=== PATIENT | female | born 1945 | race American Indian/Alaskan Native ===

== ENCOUNTER 2021-01-29 10:51 | Inpatient (IN) | payer MEDICARE ==
[2021-01-29] MEDS ORDERED: SODIUM CHLORIDE 0.9% 500 ML 500 ML IV ONE (11:16)
--- NOTE | 2021-01-29 11:18 | Emergency Department Report ---
Blank Doc - Documentation Documentation: 75-year-old brought by caregiver for AMS and hematuria. 1- This initial assessment/diagnostic orders/clinical plan/ treatment(s) is/are subject to change based on pt's health status, clinical progression and re- assessment by fellow clinical providers in the ED. Further treatment and workup at subsequent clinical provers discretion. Patient/guardians urged not to elope from ED as their condition may be serious if not clinically assessed and managed. 2-labs 3-imaging studies
--- NOTE | 2021-01-29 11:54 | XRay Report ---
CHEST 1 VIEW INDICATION: possible Sepsis. COMPARISON: None FINDINGS: Support devices: None. Heart: Within normal limits. Lungs/Pleura: No acute air space or interstitial disease. Additional findings: None. IMPRESSION: No acute findings. Signer Name: Domingo Guerra Jr, MD Signed: 01/29/2021 11:49 AM Workstation Name: [id number]
--- NOTE | 2021-01-29 11:58 | Emergency Department Report ---
ED General Adult HPI - General Chief complaint: Urogenital-Female Stated complaint: BLOOD IN URINE/HIP PAIN/SHOULDER Time Seen by Provider: 01/29/21 11:07 Source: family Mode of arrival: Wheelchair Limitations: Altered Mental Status - History of Present Illness Initial comments: Patient is a 75-year-old female who was brought to the emergency department by her top lift trimmer for evaluation of altered mental status and hematuria over an unspecified amount of time. Machines Technician not available in person nor via telephone at present time, patient alert but seemingly demented, unable to significantly contribute to history. - Related Data Home Medications Medication Instructions Recorded Confirmed Last Taken Sertraline [Zoloft] 50 mg PO DAILY 01/29/21 01/29/21 Unknown Allergies Allergy/AdvReac Type Severity Reaction Status Date / Time No Known Allergies Allergy Unverified 01/29/21 11:06 ED Review of Systems ROS: Stated complaint: BLOOD IN URINE/HIP PAIN/SHOULDER Other details as noted in HPI Comment: Unobtainable due to pts medical conditions ED Past Medical Hx - Past Medical History Previous Medical History?: Yes Hx Diabetes: Yes Additional medical history: Hx ovarian CA - Medications Home Medications: Home Medications Medication Instructions Recorded Confirmed Last Taken Type Sertraline [Zoloft] 50 mg PO DAILY 01/29/21 01/29/21 Unknown History ED Physical Exam - General Limitations: Altered Mental Status General appearance: alert, in no apparent distress - Head Head exam: Present: atraumatic, normocephalic - Eye Eye exam: Present: normal appearance - ENT ENT exam: Present: mucous membranes moist - Neck Neck exam: Present: normal inspection - Respiratory Respiratory exam: Present: normal lung sounds bilaterally. Absent: respiratory distress - Cardiovascular Cardiovascular Exam: Present: regular rate, normal rhythm - GI/Abdominal GI/Abdominal exam: Present: soft, normal bowel sounds - Extremities Exam Extremities exam: Present: normal inspection - Back Exam Back exam: Present: normal inspection - Neurological Exam Neurological exam: Present: alert, oriented X3 - Psychiatric Psychiatric exam: Present: normal affect, normal mood - Skin Skin exam: Present: warm, dry, intact, normal color. Absent: rash ED Course Vital Signs 01/29/21 01/29/21 01/29/21 11:10 12:06 12:38 Temperature 97.3 F L Pulse Rate 109 H 87 Respiratory 16 18 18 Rate Blood Pressure 137/94 166/79 [Right] O2 Sat by Pulse 97 96 Oximetry 01/29/21 14:35 Temperature Pulse Rate 75 Respiratory 18 Rate Blood Pressure 175/84 [Right] O2 Sat by Pulse 98 Oximetry - Reevaluation(s) Reevaluation #1: 01/29/21 16:14 Patient treated with IV normal saline, IV Rocephin ED Medical Decision Making - Lab Data Result diagrams: 01/29/21 12:07 01/29/21 12:07 Vital Signs 01/29/21 01/29/21 01/29/21 11:10 12:06 12:38 Temperature 97.3 F L Pulse Rate 109 H 87 Respiratory 16 18 18 Rate Blood Pressure 137/94 166/79 [Right] O2 Sat by Pulse 97 96 Oximetry 01/29/21 14:35 Temperature Pulse Rate 75 Respiratory 18 Rate Blood Pressure 175/84 [Right] O2 Sat by Pulse 98 Oximetry Lab Results 01/29/21 01/29/21 01/29/21 Range/Units 11:04 12:07 12:07 WBC 4.1 L (4.5-11.0) K/mm3 RBC 4.49 (3.65-5.03) M/mm3 Hgb 13.7 (10.1-14.3) gm/dl Hct 40.0 (30.3-42.9) % MCV 89 (79-97) fl MCH 30 (28-32) pg MCHC 34 (30-34) % RDW 16.5 H (13.2-15.2) % Plt Count 443 H (140-440) K/mm3 Lymph % (Auto) 20.5 (13.4-35.0) % Rush % (Auto) 6.6 (0.0-7.3) % Eos % (Auto) 0.1 (0.0-4.3) % Baso % (Auto) 0.4 (0.0-1.8) % Lymph # (Auto) 0.8 L (1.2-5.4) K/mm3 Rush # (Auto) 0.3 (0.0-0.8) K/mm3 Eos # (Auto) 0.0 (0.0-0.4) K/mm3 Baso # (Auto) 0.0 (0.0-0.1) K/mm3 Seg Neutrophils % 72.4 H (40.0-70.0) % Seg Neutrophils # 3.0 (1.8-7.7) K/mm3 PT 13.1 (12.2-14.9) Sec. INR 1.01 (0.87-1.13) VBG pH (7.320-7.420) Sodium (137-145) mmol/L Potassium (3.6-5.0) mmol/L Chloride (98-107) mmol/L Carbon Dioxide (22-30) mmol/L Anion Gap mmol/L BUN (7-17) mg/dL Creatinine (0.6-1.2) mg/dL Estimated GFR ml/min BUN/Creatinine Ratio % Glucose (65-100) mg/dL POC Glucose 60 L (70-105) mg/dL Lactic Acid (0.7-2.0) mmol/L Calcium (8.4-10.2) mg/dL Total Bilirubin (0.1-1.2) mg/dL AST (5-40) units/L ALT (7-56) units/L Alkaline Phosphatase (35-129) units/L Total Protein (6.3-8.2) g/dL Albumin (3.9-5) g/dL Albumin/Globulin Ratio % Urine Color (Yellow) Urine Turbidity (Clear) Urine pH (5.0-7.0) Ur Specific [place] (1.003-1.030) Urine Protein (Negative) mg/dL Urine Glucose (UA) (Negative) mg/dL Urine Ketones (Negative) mg/dL Urine Blood (Negative) Urine Nitrite (Negative) Urine Bilirubin (Negative) Urine Urobilinogen (<2.0) mg/dL Ur Leukocyte Esterase (Negative) Urine WBC (Auto) (0.0-6.0) /HPF Urine RBC (Auto) (0.0-6.0) /HPF Amorphous Crystals 01/29/21 01/29/21 01/29/21 Range/Units 12:07 12:07 12:07 WBC (4.5-11.0) K/mm3 RBC (3.65-5.03) M/mm3 Hgb (10.1-14.3) gm/dl Hct (30.3-42.9) % MCV (79-97) fl MCH (28-32) pg MCHC (30-34) % RDW (13.2-15.2) % Plt Count (140-440) K/mm3 Lymph % (Auto) (13.4-35.0) % Rush % (Auto) (0.0-7.3) % Eos % (Auto) (0.0-4.3) % Baso % (Auto) (0.0-1.8) % Lymph # (Auto) (1.2-5.4) K/mm3 Rush # (Auto) (0.0-0.8) K/mm3 Eos # (Auto) (0.0-0.4) K/mm3 Baso # (Auto) (0.0-0.1) K/mm3 Seg Neutrophils % (40.0-70.0) % Seg Neutrophils # (1.8-7.7) K/mm3 PT (12.2-14.9) Sec. INR (0.87-1.13) VBG pH 7.408 (7.320-7.420) Sodium 142 (137-145) mmol/L Potassium 3.9 (3.6-5.0) mmol/L Chloride 104.7 (98-107) mmol/L Carbon Dioxide 24 (22-30) mmol/L Anion Gap 17 mmol/L BUN 20 H (7-17) mg/dL Creatinine 0.6 (0.6-1.2) mg/dL Estimated GFR > 60 ml/min BUN/Creatinine Ratio 33 % Glucose 118 H (65-100) mg/dL POC Glucose (70-105) mg/dL Lactic Acid 1.90 (0.7-2.0) mmol/L Calcium 9.8 (8.4-10.2) mg/dL Total Bilirubin 0.80 (0.1-1.2) mg/dL AST 94 H (5-40) units/L ALT 80 H (7-56) units/L Alkaline Phosphatase 112 (35-129) units/L Total Protein 6.9 (6.3-8.2) g/dL Albumin 3.7 L (3.9-5) g/dL Albumin/Globulin Ratio 1.2 % Urine Color (Yellow) Urine Turbidity (Clear) Urine pH (5.0-7.0) Ur Specific [place] (1.003-1.030) Urine Protein (Negative) mg/dL Urine Glucose (UA) (Negative) mg/dL Urine Ketones (Negative) mg/dL Urine Blood (Negative) Urine Nitrite (Negative) Urine Bilirubin (Negative) Urine Urobilinogen (<2.0) mg/dL Ur Leukocyte Esterase (Negative) Urine WBC (Auto) (0.0-6.0) /HPF Urine RBC (Auto) (0.0-6.0) /HPF Amorphous Crystals 01/29/21 Range/Units 12:20 WBC (4.5-11.0) K/mm3 RBC (3.65-5.03) M/mm3 Hgb (10.1-14.3) gm/dl Hct (30.3-42.9) % MCV (79-97) fl MCH (28-32) pg MCHC (30-34) % RDW (13.2-15.2) % Plt Count (140-440) K/mm3 Lymph % (Auto) (13.4-35.0) % Rush % (Auto) (0.0-7.3) % Eos % (Auto) (0.0-4.3) % Baso % (Auto) (0.0-1.8) % Lymph # (Auto) (1.2-5.4) K/mm3 Rush # (Auto) (0.0-0.8) K/mm3 Eos # (Auto) (0.0-0.4) K/mm3 Baso # (Auto) (0.0-0.1) K/mm3 Seg Neutrophils % (40.0-70.0) % Seg Neutrophils # (1.8-7.7) K/mm3 PT (12.2-14.9) Sec. INR (0.87-1.13) VBG pH (7.320-7.420) Sodium (137-145) mmol/L Potassium (3.6-5.0) mmol/L Chloride (98-107) mmol/L Carbon Dioxide (22-30) mmol/L Anion Gap mmol/L BUN (7-17) mg/dL Creatinine (0.6-1.2) mg/dL Estimated GFR ml/min BUN/Creatinine Ratio % Glucose (65-100) mg/dL POC Glucose (70-105) mg/dL Lactic Acid (0.7-2.0) mmol/L Calcium (8.4-10.2) mg/dL Total Bilirubin (0.1-1.2) mg/dL AST (5-40) units/L ALT (7-56) units/L Alkaline Phosphatase (35-129) units/L Total Protein (6.3-8.2) g/dL Albumin (3.9-5) g/dL Albumin/Globulin Ratio % Urine Color Arlene (Yellow) Urine Turbidity Cloudy (Clear) Urine pH 7.0 (5.0-7.0) Ur Specific [place] 1.019 (1.003-1.030) Urine Protein 100 mg/dl (Negative) mg/dL Urine Glucose (UA) Neg (Negative) mg/dL Urine Ketones Tr (Negative) mg/dL Urine Blood Neg (Negative) Urine Nitrite Pos (Negative) Urine Bilirubin Neg (Negative) Urine Urobilinogen 4.0 (<2.0) mg/dL Ur Leukocyte Esterase Lg (Negative) Urine WBC (Auto) < 1.0 (0.0-6.0) /HPF Urine RBC (Auto) < 1.0 (0.0-6.0) /HPF Amorphous Crystals 3+ - Radiology Data Radiology results: report reviewed Reports reviewed for CT head, CT abdomen pelvis, and chest x-ray, please review radiology report for full results Critical care attestation.: If time is entered above; I have spent that time in minutes in the direct care of this critically ill patient, excluding procedure time. ED Disposition Clinical Impression: Acute cystitis, Urinary (tract) obstruction Disposition: OP ADMIT IP TO THIS HOSP Is pt being admited?: Yes Condition: Stable
--- NOTE | 2021-01-29 12:05 | Cat Scan Report ---
CT head/brain wo con INDICATION / CLINICAL INFORMATION: 75 years Female; AMS. TECHNIQUE: Routine CT head without contrast. All CT scans at this location are performed using CT dos e reduction for ALARA by means of automated exposure control. COMPARISON: None. FINDINGS: BRAIN / INTRACRANIAL CONTENTS: There is moderate to cerebral and cerebellar atrophy with associated p rominence of the ventricular system. There also appears be moderate cerebral white matter disease mos t consistent with microvascular angiopathy. There is no clear CT evidence of acute intracranial hemor rhage or significant mass effect. ORBITS: No significant abnormality of visualized orbits. SINUSES / MASTOIDS: There is mild opacification along the posterior left sphenoid sinus. CRANIOCERVICAL JUNCTION: No significant abnormality. ADDITIONAL FINDINGS: None. IMPRESSION: 1. There is moderate microvascular angiopathy and cerebral atrophy without CT evidence of acute intra cranial hemorrhage. Signer Name: Hao Catalan MD Signed: 01/29/2021 12:01 PM Workstation Name: [id number]
[2021-01-29 12:27] LABS: Basophils % (Auto) 0.4 % (0.0-1.8); Eosinophils % (Auto) 0.1 % (0.0-4.3); Hemoglobin 13.7 gm/dl (10.1-14.3); Lymphocytes # (Auto) 0.8 K/mm3 (1.2-5.4); Lymphocytes % (Auto) 20.5 % (13.4-35.0); Mean Corpuscular HGB Conc 34 % (30-34); Mean Corpuscular Volume 89 fl (79-97); Monocytes # (Auto) 0.3 K/mm3 (0.0-0.8); Monocytes % (Auto) 6.6 % (0.0-7.3); Platelet Count 443 K/mm3 (140-440); Red Blood Count 4.49 M/mm3 (3.65-5.03); Red Cell Distribution Width 16.5 % (13.2-15.2)
[2021-01-29 12:35] LABS: INR 1.01 (0.87-1.13)
[2021-01-29] MEDS ORDERED: SODIUM CHLORIDE 0.9% 500 ML 500 ML ONE (12:35)
[2021-01-29 12:55] LABS: Alanine Aminotransferase 80 units/L (7-56); Albumin 3.7 g/dL (3.9-5); Blood Urea Nitrogen 20 mg/dL (7-17); Calcium 9.8 mg/dL (8.4-10.2); Hemolysis Index 4
[2021-01-29 12:57] LABS: BUN/Creatinine Ratio 33
[2021-01-29 13:42] LABS: Amorphous Crystals,Urine 3+; Bilirubin,Urine NEG (Negative); Blood,Urine NEG (Negative); Color,Urine Amber (Yellow)
[2021-01-29 14:01] LABS: RBC,Urine < 1.0 /HPF (0.0-6.0); WBC,Urine < 1.0 /HPF (0.0-6.0)
[2021-01-29] MEDS ORDERED: cefTRIAXone/NS 1 GM/50 ML 1 GM/50 ML BAG IV ONE (14:12)
--- NOTE | 2021-01-29 14:20 | Cat Scan Report ---
CT abdomen pelvis wo con INDICATION: hematuria. COMPARISON: None TECHNIQUE: Abdominal and pelvic CT exam performed. All CT scans at this location are performed using CT dose reduction for ALARA by means of automated exposure control. FINDINGS: CT ABDOMEN and PELVIS: Please note image quality is significantly degraded by artifact. Lung Bases: 7 mm posterior basal segment right lower lobe pulmonary nodule. There are scattered groun dglass opacities seen within the bilateral lower lobes Liver: No significant abnormality. Biliary: No significant abnormality. Spleen: No significant abnormality. Pancreas: No significant abnormality. Adrenals: No significant abnormality. Kidneys: There is severe left renal pelvis and calyceal dilation. No definite dilation of the ureter. Numerous bilateral dependently layering stones are seen. There is also right hydronephrosis with num erous dependently layering stones. However, this is not well-visualized on this examination secondary to artifact. Lymphatics: No lymphadenopathy. Vasculature: Atherosclerotic but nonaneurysmal abdominal aorta. Ectasia the aorta but no aneurysm. Bowel: Large quantity of stool is seen within the rectum. No pneumoperitoneum. No wall thickening. Pelvis: Bladder is distended but not well evaluated on this exam. Postoperative changes but no signif icant abnormality. Osseous Structures: Remote left parasymphyseal pubic rami fractures. Right greater than left osteoart hritis of the hips. Sclerosis of the bilateral femoral heads. Prior left femoral intramedullary nail ing. Multilevel spondylosis. Chronic appearing multilevel vertebral body height loss. Additional Findings: None IMPRESSION: 1. Please note image quality is significantly degraded. However, there is severe left hydronephrosis with blunting of the calyces and numerous layering stones. The ureters are not dilated and findings c ould be related to a ureteropelvic junction obstruction. There is also right-sided hydronephrosis whi ch is difficult to grade but is at least moderate with numerous layering stones. Consider CT urogram if patient can tolerate contrast. 2. Large quantity of stool in the rectum concerning for fecal impaction. 3. Right lower lobe pulmonary nodule measuring 7 mm. Consider dedicated chest CT follow-up in 6 month s. 4. Right greater than left hip osteoarthritis. 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 Signer Name: Tayo Dillard MD Signed: 01/29/2021 2:16 PM Workstation Name: [id number]
[2021-01-29] MEDS ORDERED: ONDANSETRON 4 MG/2 ML INJ IV PRN (14:35)
[2021-01-29] MEDS ORDERED: ACETAMINOPHEN 325 MG TAB PO PRN (14:35)
--- NOTE | 2021-01-29 14:37 | History and Physical Report ---
History of Present Illness Chief complaint: She is weak, and cannot get out of bed History of present illness: 75 YO Female with Vascular Dementia, Cerebral Atherosclerosis, Ovarian Cancer, DM, Debility, Fall resulting in Hip/Shoulder fracture but patient not a surgical candidate presents to ED for evaluation. Patient is confused with diminished cognition and is unable to provide history. Patient history provided by her daughter who is present at the bedside during exam and interview. As per daughter the patient has experienced increased confusion, increased weakness, and diminished oral intake over the past 3 weeks with worsening symptoms over the same timeframe. Patient is currently bedbound, nonambulatory with a Pallative Performance Score of 30%, and requires 6/6 Assistance with Activities of daily living. Patient is unable to make her needs known or follow simple commands. Patient transported to [facility] via private vehicle for further care and evaluation of the aforementioned symptoms. The patient was seen and evaluated in the emergency department. All lab and imaging studies reviewed. The patient was found to have urinary tract infection complicated by metabolic encephalopathy. Patient treated with IV antibiotic therapy and admitted to medical floor. No reports of fever, chills, chest pain, palpitations, productive cough, skin rash, recent ill contacts, or known exposure to COVID-19. No prior admission for review. No medication listed at time of admission for reconciliation. Advanced care planning conducted in ED. Past History Past Medical History: cancer, other (See HPI) Past Surgical History: No surgical history Social history: . denies: smoking, alcohol abuse, prescription drug abuse Family history: diabetes, hypertension Medications and Allergies Allergies Allergy/AdvReac Type Severity Reaction Status Date / Time No Known Allergies Allergy Unverified 01/29/21 11:06 Home Medications Medication Instructions Recorded Confirmed Last Taken Type Sertraline [Zoloft] 50 mg PO DAILY 01/29/21 01/29/21 Unknown History Active Meds: Active Medications Ceftriaxone Sodium (Rocephin/Ns 1 Gm/50 Ml) 1 gm in 50 mls @ 100 mls/hr IV ONCE ONE; Protocol Stop: 01/29/21 14:41 Last Admin: 01/29/21 14:24 Dose: 100 mls/hr Documented by: Review of Systems ROS unobtainable: due to mental status Exam - Constitutional Vitals: Temp Pulse Resp BP Pulse Ox 97.3 F L 87 18 166/79 96 01/29/21 11:10 01/29/21 12:38 01/29/21 12:38 01/29/21 12:38 01/29/21 12:38 General appearance: Present: mild distress - EENT Eyes: Present: PERRL ENT: clear oral mucosa, hearing decreased - Neck Neck: Present: supple, normal ROM - Respiratory Respiratory effort: normal Respiratory: bilateral: CTA - Cardiovascular Heart Sounds: Present: S1 & S2. Absent: rub, click - Extremities Extremities: pulses symmetrical, No edema - Abdominal General gastrointestinal: Present: soft, non-tender, non-distended, normal bowel sounds Female genitourinary: Present: normal - Integumentary Integumentary: Present: dry, clammy - Musculoskeletal Musculoskeletal: generalized weakness - Psychiatric Psychiatric: no appropriate mood/affect, no intact judgment & insight, no memory intact, no cooperative, agitated - Neurologic Neurologic: CNII-XII intact, no focal deficits, moves all extremities, no gait normal Results - Labs CBC & Chem 7: 01/29/21 12:07 01/29/21 12:07 Labs: Abnormal lab results 01/29/21 01/29/21 Range/Units 12:07 12:07 WBC 4.1 L (4.5-11.0) K/mm3 RDW 16.5 H (13.2-15.2) % Plt Count 443 H (140-440) K/mm3 Lymph # (Auto) 0.8 L (1.2-5.4) K/mm3 Seg Neutrophils % 72.4 H (40.0-70.0) % BUN 20 H (7-17) mg/dL Glucose 118 H (65-100) mg/dL AST 94 H (5-40) units/L ALT 80 H (7-56) units/L Albumin 3.7 L (3.9-5) g/dL Assessment and Plan - Patient Problems (1) Urinary tract infection Current Visit: Yes Status: Acute Qualifiers: Encounter type: initial encounter Plan to address problem: IV antibiotic therapy, supportive care, urinalysis, (2) Vascular dementia Current Visit: Yes Status: Acute Qualifiers: Dementia behavioral disturbance: with behavioral disturbance Qualified Code(s): F01.51 - Vascular dementia with behavioral disturbance Plan to address problem: Verbal prompting, verbal redirection, supportive care, benzodiazepine therapy as clinically indicated. (3) Cerebral atherosclerosis Current Visit: Yes Status: Acute Plan to address problem: Risk factor reduction therapy, supportive care. (4) Debility Current Visit: Yes Status: Acute Plan to address problem: Supportive care, fall precautions, bed alarm. (5) Metabolic encephalopathy Current Visit: Yes Status: Acute Plan to address problem: CT scan head, neuro check, IV fluid resuscitation therapy, supportive care. (6) DVT prophylaxis Current Visit: Yes Status: Acute Plan to address problem: SCDs bilateral lower extremities while in bed, prophylactic anticoagulation. (7) Advance care planning Current Visit: Yes Status: Acute Plan to address problem: Disease education conducted, patient is full code, care plan discussed, prognosis discussed, diagnosis discussed, patient daughter knowledges underst anding and agreement with care plan. Patient daughter elects to have home hospice evaluation after discharge. Hospice Evaluation coordinated. +30 minutes.
[2021-01-29] MEDS ORDERED: SODIUM CHLORIDE 0.9% 1000 ML 1,000 ML IV SCH (15:00)
[2021-01-30 05:12] LABS: Basophils % (Auto) 0.8 % (0.0-1.8); Eosinophils % (Auto) 0.1 % (0.0-4.3); Hematocrit 33.2 % (30.3-42.9); Hemoglobin 11.4 gm/dl (10.1-14.3); Lymphocytes # (Auto) 1.1 K/mm3 (1.2-5.4); Lymphocytes % (Auto) 29.8 % (13.4-35.0); Mean Corpuscular HGB Conc 34 % (30-34); Mean Corpuscular Volume 88 fl (79-97); Monocytes # (Auto) 0.4 K/mm3 (0.0-0.8); Monocytes % (Auto) 11.2 % (0.0-7.3); Platelet Count 379 K/mm3 (140-440); Red Blood Count 3.77 M/mm3 (3.65-5.03); Red Cell Distribution Width 16.2 % (13.2-15.2)
[2021-01-30 05:32] LABS: Blood Urea Nitrogen 18 mg/dL (7-17); Calcium 9.2 mg/dL (8.4-10.2); Hemolysis Index 2
[2021-01-30 05:37] LABS: BUN/Creatinine Ratio 36
[2021-01-30 06:08] VITALS: BP 134/67
--- NOTE | 2021-01-30 09:00 | Event Note ---
Date: 01/30/21 I called patient daughter and according to her patient did not get vaccinated for COVID-19 I wanted to do screening test for Ms. Ku for COVID-19 as patient presented with confusion lethargy which could be due to underlying Covid infection But patient daughter refused to get her mother tested for COVID-19 and she wants to take patient back home.
--- NOTE | 2021-01-30 09:07 | Discharge Summary ---
Providers - Providers Date of Admission: 01/29/21 14:35 Date of discharge: 01/30/21 Attending physician: KAMERON GUERRERO 01/29/21 17:09 Consult to Wound/ET Nurse [CONS] Routine Reason For Exam: wound eval 01/29/21 17:46 Consult to Dietitian/Nutrition [CONS] Routine Physician Instructions: Reason For Exam: Reason for Consult: Poor oral intake Primary care physician: MARVEL FROST Hospitalization Condition: Stable Hospital course: Discharge diagnosis: --COVID 19 PUI, refused the test -- Urinary tract infection --Vascular dementia -- Cerebral atherosclerosis --Physical Debility -- Metabolic encephalopathy --h/o Ovarian Cancer --h/o Fall resulting in Hip/Shoulder fracture Time spent for discharge: 34 minutes Core Measure Documentation - Palliative Care Palliative Care/ Comfort Measures: Not Applicable - Core Measures Any of the following diagnoses?: none Exam - Constitutional Vitals: Temp Pulse Resp BP Pulse Ox 97.2 F L 79 20 134/67 100 01/30/21 06:07 01/30/21 06:05 01/30/21 06:07 01/30/21 06:07 01/30/21 06:05 Plan Activity: up only with assistance Weight Bearing Status: Non-Weight Bearing Diet: advance as tolerated Follow up with: MARVEL FROST MD [Primary Care Provider] - 3-5 Days Prescriptions: Ciprofloxacin HCl [Ciprofloxacin TAB] 250 mg PO BID #10 tablet
[2021-01-30] MEDS ORDERED: cefTRIAXone/NS 1 GM/50 ML 1 GM/50 ML BAG IV SCH (10:00)
== END 2021-01-30 13:15 | disposition home or self-care (01) | DRG 689 ==
LOC: ED 10:51 → 3A 14:35
PROVIDERS: ADMIT Internal Medicine; ATTEND Internal Medicine
DX: N30.01 Acute cystitis with hematuria (principal); G93.41 Metabolic encephalopathy; F01.51 Vascular dementia, unspecified severity, with behavioral disturbance; R53.81 Other malaise; I67.2 Cerebral atherosclerosis; E11.9 Type 2 diabetes mellitus without complications; Z85.43 Personal history of malignant neoplasm of ovary; Z82.49 Family history of ischemic heart disease and other diseases of the circulatory system; Z83.3 Family history of diabetes mellitus; Z79.899 Other long term (current) drug therapy
CPT/HCPCS: 36415; 70450; 71045; 74176; 80048; 80053; 81001; 82140; 82805; 82962; 85025; 85610; 87040; 87086; 93005; 96361; 96365; 96375; G0378; J0696; J7030; J7040